=== PATIENT | female | born 1985 | race Caucasian/White ===

== ENCOUNTER 2017-06-03 10:06 | Outpatient (CLI) | payer OTHER | END 2017-06-03 12:09 | disposition home or self-care (01) | LOC: OBT 10:06 → L-D 10:06 → OBT 12:09 | DX: O36.8120 Decreased fetal movements, second trimester, not applicable or unspecified (principal); Z3A.28 28 weeks gestation of pregnancy | CPT/HCPCS: 76818 ==

== ENCOUNTER 2017-07-22 21:44 | Inpatient (IN) | payer OTHER ==
[2017-07-23] MEDS: LACTATED RINGER'S 1,000 ML IV ×4 (01:39→22:30)
[2017-07-23] MEDS: DOCUSATE SODIUM 100 MG CAP PO (08:47)
[2017-07-23] MEDS: PRENATAL VITAMIN PO (08:47)
[2017-07-24] MEDS: LACTATED RINGER'S 500 ML IV ×6 (05:35→22:00)
[2017-07-24] MEDS: PRENATAL VITAMIN PO (08:15)
[2017-07-24] MEDS: DOCUSATE SODIUM 100 MG CAP PO (08:15)
[2017-07-25] MEDS: LACTATED RINGER'S 500 ML IV ×3 (01:54→08:10)
[2017-07-25] MEDS: PRENATAL VITAMIN PO (09:51)
[2017-07-25] MEDS: DOCUSATE SODIUM 100 MG CAP PO (09:51)
== END 2017-07-25 12:45 | disposition home or self-care (01) | DRG 782 ==
LOC: OBT 21:44 → L-D 21:45 → OBG 07-23 01:16 → PP1 07-23 02:26 → L-D 21:44
DX: O41.03X0 Oligohydramnios, third trimester, not applicable or unspecified (principal); Z3A.35 35 weeks gestation of pregnancy
CPT/HCPCS: 76815; 76816; 76818

== ENCOUNTER 2017-07-27 20:02 | Outpatient (CLI) | payer OTHER ==
[2017-07-27] MEDS ORDERED: AMPICILLIN 2 GM/NS (PMX) 100 ML IVPB (21:09)
[2017-07-27] MEDS ORDERED: DINOPROSTONE 10 MG VAG SUPP VAG (22:00)
[2017-07-28] MEDS ORDERED: AMPICILLIN 1 GM/NS (PMX) 50 ML IVPB (01:00)
== END 2017-07-27 22:55 | disposition home or self-care (01) ==
LOC: OBT 20:02 → L-D 20:02 → OBT 22:55
DX: O41.03X0 Oligohydramnios, third trimester, not applicable or unspecified (principal); O41.93X0 Disorder of amniotic fluid and membranes, unspecified, third trimester, not applicable or unspecified; Z3A.35 35 weeks gestation of pregnancy
CPT/HCPCS: 76818

== ENCOUNTER 2017-08-10 09:03 | Inpatient (IN) | payer OTHER ==
[2017-08-10] MEDS: LACTATED RINGER'S 1,000 ML IV (09:11)
[2017-08-10] MEDS ORDERED: AMPICILLIN 2 GM/NS (PMX) 100 ML (09:12)
[2017-08-10] MEDS ORDERED: OXYTOCIN 30 UNITS/LR 500 ML IV ×2 (09:20→09:30)
[2017-08-10] MEDS ORDERED: MISOPROSTOL 200 MCG TAB PR (09:30)
[2017-08-10] MEDS ORDERED: METHYLERGONOVINE 0.2 MG INJ IM (09:30)
[2017-08-10] MEDS: AMPICILLIN 2 GM/NS (PMX) 100 ML IV (09:30)
[2017-08-10] MEDS ORDERED: CARBOPROST 250 MCG INJ IM (09:30)
[2017-08-10] MEDS ORDERED: BUTORPHANOL 2 MG INJ IV (09:30)
[2017-08-10 09:38] LABS: ADD MAN DIFF? NO
[2017-08-10 09:41] LABS: WHITE BLOOD COUNT 11.1 10^3/ul (4.8-10.8)
[2017-08-10 09:41] LABS: ABNORMAL IP MESSAGE 1; BASOPHILS % 0.3 % (0.0-2.0); EOSINOPHILS # 0.2 10^3/ul (0.0-0.5); EOSINOPHILS % 1.9 % (0.0-7.0); HEMATOCRIT 32.4 % (37.0-47.0); LYMPHOCYTES # 1.6 10^3/ul (0.8-2.9); LYMPHOCYTES % 14.8 % (15.0-51.0); MEAN CORPUSCULAR HEMOGLOBIN 23.8 pg (29.0-33.0); MEAN CORPUSCULAR HGB CONC 30.9 g/dl (32.0-37.0); MEAN CORPUSCULAR VOLUME 77.1 fl (82.0-101.0); MEAN PLATELET VOLUME 12.5 fl (7.4-10.4); MONOCYTE # 0.5 10^3/ul (0.3-0.9); MONOCYTES % 4.9 % (0.0-11.0); NEUTROPHIL # 8.6 10^3/ul (1.6-7.5); NEUTROPHILS % 77.6 % (39.0-77.0); PLATELET COUNT 211 10^3/UL (140-415); RED CELL DISTRIBUTION WIDTH 17.7 % (11.5-14.5)
[2017-08-10 09:47] LABS: POSITIVE DIFF @See below
[2017-08-10 10:16] LABS: INR 0.95; PROTIME 12.8 Sec (11.9-14.9)
[2017-08-10 10:17] LABS: PARTIAL THROMBOPLASTIN TIME 28.1 Sec (25.0-35.0)
[2017-08-10] MEDS: LIDOCAINE 1% (MPF) 30 ML INJ INJ (10:34)
[2017-08-10] MEDS: IBUPROFEN 600 MG TAB PO ×3 (10:38→18:31)
[2017-08-10 10:39] LABS: HEPATITIS B SURFACE ANTIGEN NEGATIVE (NEGATIVE)
[2017-08-10] MEDS: OXYTOCIN 30 UNITS/LR 500 ML IV ×3 (10:55→15:24)
[2017-08-10] MEDS ORDERED: ONDANSETRON 4 MG INJ IV (12:00)
[2017-08-10] MEDS ORDERED: ACETAMINOPHEN 325 MG TAB PO (12:00)
[2017-08-10] MEDS ORDERED: OXYCODONE/ASPIRIN (4.88/325) TAB PO ×2 (12:00)
[2017-08-10] MEDS ORDERED: WITCH HAZEL/GLYCERIN PAD PR (12:00)
[2017-08-10] MEDS ORDERED: DIBUCAINE 1% 30 GM OINT TOP (12:00)
[2017-08-10] MEDS ORDERED: HYDROCODONE/APAP (5/325) TAB PO ×2 (12:00)
[2017-08-10] MEDS ORDERED: BENZOCAINE 20% 56 ML SPRAY TOP (12:00)
[2017-08-10] MEDS ORDERED: AMPICILLIN 1 GM/NS (PMX) 50 ML IV (13:30)
[2017-08-10 15:20] LABS: RAPID PLASMA REAGIN NONREACTIVE (NR)
[2017-08-10] MEDS: LANOLIN 7 GM TUBE TOP (18:36)
[2017-08-10] MEDS: SENNA/DOCUSATE NA (8.6MG/50MG) TAB PO (21:16)
[2017-08-11] MEDS: IBUPROFEN 600 MG TAB PO ×4 (00:23→17:52)
[2017-08-11 08:34] LABS: ADD MAN DIFF? NO
[2017-08-11 08:40] LABS: BASOPHIL # 0.1 10^3/ul (0.0-0.1); BASOPHILS % 0.4 % (0.0-2.0); EOSINOPHILS # 0.3 10^3/ul (0.0-0.5); EOSINOPHILS % 2.8 % (0.0-7.0); HEMATOCRIT 27.9 % (37.0-47.0); HEMOGLOBIN 8.6 g/dl (12.0-16.0); LYMPHOCYTES % 16.9 % (15.0-51.0); MEAN CORPUSCULAR HGB CONC 30.8 g/dl (32.0-37.0); MEAN CORPUSCULAR VOLUME 77.9 fl (82.0-101.0); MEAN PLATELET VOLUME 12.2 fl (7.4-10.4); MONOCYTE # 0.7 10^3/ul (0.3-0.9); MONOCYTES % 5.9 % (0.0-11.0); NEUTROPHIL # 8.8 10^3/ul (1.6-7.5); NEUTROPHILS % 73.5 % (39.0-77.0); PLATELET COUNT 200 10^3/UL (140-415); RED BLOOD COUNT 3.58 10^6/ul (4.20-5.40); RED CELL DISTRIBUTION WIDTH 17.6 % (11.5-14.5)
[2017-08-11] MEDS: SENNA/DOCUSATE NA (8.6MG/50MG) TAB PO (10:49)
[2017-08-12] MEDS: SENNA/DOCUSATE NA (8.6MG/50MG) TAB PO ×2 (00:13→09:36)
[2017-08-12] MEDS: IBUPROFEN 600 MG TAB PO ×3 (00:13→11:59)
[2017-08-12] MEDS: MEASLES,MUMPS,RUBELLA VACCINE INJ SC* (10:36)
== END 2017-08-12 17:38 | disposition home or self-care (01) | DRG 775 ==
LOC: OBT 09:03 → L-D 09:05 → OBT 09:07 → L-D 09:07 → PP1 12:00
PROVIDERS: Obstetrics & Gynecology
PROC: 10E0XZZ Delivery of Products of Conception, External Approach (ICD-10-PCS; principal; 2017-08-10)
PROC: 3E033VJ Introduction of Other Hormone into Peripheral Vein, Percutaneous Approach (ICD-10-PCS; 2017-08-10)
DX: O69.81X0 Labor and delivery complicated by cord around neck, without compression, not applicable or unspecified (principal); Z37.0 Single live birth; Z3A.38 38 weeks gestation of pregnancy
CPT/HCPCS: 85025; 85610; 85730; 86592; 86900; 86901; 87340

== ENCOUNTER 2017-10-11 20:40 | Emergency (ER) | payer OTHER ==
[2017-10-11] MEDS: DIPHENHYDRAMINE 50 MG CAP PO (23:04)
[2017-10-12] MEDS: FAMOTIDINE 20 MG TAB PO (00:20)
== END 2017-10-12 00:22 | disposition home or self-care (01) ==
LOC: FTE 10-12 00:22
DX: L50.9 Urticaria, unspecified (principal)
CPT/HCPCS: 99283; Z7610

== ENCOUNTER 2019-01-25 07:43 | Emergency (ER) | payer SELFPAY, OTHER ==
[2019-01-25] MEDS: LIDOCAINE 2% (MDV) 20 ML INJ INJ (08:14)
== END 2019-01-25 09:07 | disposition home or self-care (01) ==
LOC: FTE 09:07
DX: L60.0 Ingrowing nail (principal)
CPT/HCPCS: 11765; 99283-25